=== PATIENT | female | born 1970 | race Caucasian/White ===

== ENCOUNTER 2017-04-25 15:11 | Emergency (ER) | payer OTHER ==
[2017-04-25 16:19] LABS: microscopic required? YES; urine erythrocyte 3+ (NEGATIVE)
[2017-04-25 17:14] LABS: CALCIUM 8.7 mg/dL (8.5-10.1); CARBON DIOXIDE 31.4 mmol/L (21-32); CHLORIDE SERUM 102 mmol/L (98-107); CREATININE SERUM 0.7 mg/dL (0.6-1.0); GFR1 > 60 mL/min; GLUCOSE SERUM 107 mg/dL (74-106); POTASSIUM SERUM 3.7 mmol/L (3.5-5.1); SODIUM SERUM 140 mmol/L (136-145)
[2017-04-25 17:18] LABS: ALBUMIN 4.1 g/dL (3.4-5.0); ALKALINE PHOSPHATASE 105 U/L (46-116); ALT/SGPT 27 U/L (14-59); AMYLASE 52 U/L (25-115); AST/SGOT 22 U/L (15-37); BILIRUBIN TOTAL 0.3 mg/dL (0.20-1.00); LIPASE 145 IU/L (73-393)
[2017-04-25 17:19] LABS: TOTAL PROTEIN, SERUM 8.6 g/dL (6.4-8.2)
[2017-04-25 17:22] LABS: BASOPHIL % 0.2 % (0-2); PLATELET COUNT 240 x10^3mcL (130-400); RED CELL DISTRIBUTION WIDTH 13.6 % (11.5-14.5)
[2017-04-25 19:11] VITALS: BP 128/82
[2017-04-26] MEDS ORDERED: SIMVASTATIN20 M1 PO (21:31)
[2017-04-26] MEDS ORDERED: BENAZEPRIL HYDR20 M1 PO (21:32)
== END 2017-04-25 19:11 | disposition home or self-care (01) ==
LOC: ED 15:11
PROVIDERS: Emergency Medicine
DX: N39.0 Urinary tract infection, site not specified (principal); R10.11 Right upper quadrant pain; I10 Essential (primary) hypertension; E78.00 Pure hypercholesterolemia, unspecified; Z88.0 Allergy status to penicillin; Z88.8 Allergy status to other drugs, medicaments and biological substances
CPT/HCPCS: 83880; J1885; J2405; J7030

== ENCOUNTER 2017-04-26 18:08 | Inpatient (IN) | payer OTHER ==
[~2017-04-26] VITALS: Ht 154.9 cm; Wt 72.2 kg
[2017-04-26 18:59] LABS: BASOPHIL % 0.5 % (0-2); PLATELET COUNT 213 x10^3mcL (130-400); RED CELL DISTRIBUTION WIDTH 13.6 % (11.5-14.5)
[2017-04-26 19:07] LABS: CALCIUM 8.5 mg/dL (8.5-10.1); CARBON DIOXIDE 28.4 mmol/L (21-32); CHLORIDE SERUM 102 mmol/L (98-107); CREATININE SERUM 0.7 mg/dL (0.6-1.0); GFR1 > 60 mL/min; GLUCOSE SERUM 119 mg/dL (74-106); POTASSIUM SERUM 3.5 mmol/L (3.5-5.1); SODIUM SERUM 137 mmol/L (136-145)
[2017-04-26 19:12] LABS: ALKALINE PHOSPHATASE 106 U/L (46-116); ALT/SGPT 30 U/L (14-59); AST/SGOT 28 U/L (15-37); BILIRUBIN TOTAL 0.5 mg/dL (0.20-1.00)
[2017-04-26 19:19] LABS: TOTAL PROTEIN, SERUM 8.5 g/dL (6.4-8.2)
[2017-04-26 19:21] LABS: UA SPECIFIC GRAVITY 1.015 (1.005-1.035); microscopic required? YES; urine erythrocyte 2+ (NEGATIVE)
[2017-04-26] MEDS ORDERED: SIMVASTATIN20 M1 PO (21:31)
[2017-04-26] MEDS ORDERED: BENAZEPRIL HYDR20 M1 PO (21:32)
[2017-04-26 22:30] VITALS: BP 143/91
[2017-04-27 05:50] VITALS: BP 106/69
[2017-04-27 06:03] LABS: CALCIUM 8.3 mg/dL (8.5-10.1); CARBON DIOXIDE 24.2 mmol/L (21-32); CHLORIDE SERUM 105 mmol/L (98-107); CREATININE SERUM 0.6 mg/dL (0.6-1.0); GFR1 > 60 mL/min; GLUCOSE SERUM 128 mg/dL (74-106); SODIUM SERUM 139 mmol/L (136-145)
[2017-04-27 06:05] LABS: BASOPHIL % 0.2 % (0-2); PLATELET COUNT 171 x10^3mcL (130-400); RED CELL DISTRIBUTION WIDTH 13.3 % (11.5-14.5)
[2017-04-27 09:57] VITALS: BP 120/75
[2017-04-27] MEDS ORDERED: KEFLEX500 M1 PO (18:04)
[2017-04-27 18:26] VITALS: BP 120/75
[2017-04-27 18:35] VITALS: BP 123/78
== END 2017-04-27 19:00 | disposition home or self-care (01) | DRG 463 ==
LOC: ED 18:08 → MU 21:07
PROVIDERS: Emergency Medicine; ADMIT Internal Medicine Pulmonary Disease
DX: N39.0 Urinary tract infection, site not specified (principal); Z88.0 Allergy status to penicillin; Z88.8 Allergy status to other drugs, medicaments and biological substances
CPT/HCPCS: J0696; J1885; J1956; J2405; J7030

== ENCOUNTER 2017-10-22 18:18 | Emergency (ER) | payer OTHER ==
[~2017-10-22] VITALS: Ht 154.9 cm; Wt 76.2 kg
[~2017-10-22 18:18] MED LIST: BENAZEPRIL HYDR20 M1 PO; KEFLEX500 M1 PO; SIMVASTATIN20 M1 PO
[2017-10-22 18:45] VITALS: Ht 154.9 cm; Wt 76.2 kg
[2017-10-22 20:23] LABS: microscopic required? YES; urine erythrocyte 2+ (NEGATIVE)
[2017-10-22 20:34] VITALS: BP 144/73
== END 2017-10-22 20:34 | disposition home or self-care (01) ==
LOC: ED 18:18
DX: N39.0 Urinary tract infection, site not specified (principal); R30.0 Dysuria; I10 Essential (primary) hypertension; E78.00 Pure hypercholesterolemia, unspecified; D64.9 Anemia, unspecified; Z88.0 Allergy status to penicillin; Z88.5 Allergy status to narcotic agent